=== PATIENT | male | born 1990 | race Caucasian/White ===

== ENCOUNTER 2024-11-02 19:13 | Day surgery (SDC) | payer SELFPAY ==
[2024-11-02] MEDS: Glucagon,Human Recombinant 1 MG Vial IVPUSH ONE (19:59)
[2024-11-02 20:02] LABS: BASOPHILS ABSOLUTE AUTO 0.13 K/uL (0.00-0.20); BASOPHILS PERCENT AUTO 1.2 % (0.0-1.0); EOSINOPHILS ABSOLUTE AUTO 0.56 K/uL (0.00-0.45); HEMATOCRIT 47.5 % (42.0-52.0); HEMOGLOBIN 16.2 g/dL (14.0-18.0); IMMATURE GRAN ABSOLUTE AUTO 0.06 K/uL (0.00-0.05); IMMATURE GRAN PERCENT AUTO 0.5 % (0.0-0.4); LYMPHOCYTES ABSOLUTE AUTO 3.22 K/uL (1.00-4.80); LYMPHOCYTES PERCENT AUTO 28.9 % (24.0-44.0); MEAN CORPUSCULAR HEMOGLOBIN 28.8 pg (28.0-32.0); MEAN CORPUSCULAR HGB CONC 34.1 g/dL (32.0-36.0); MEAN CORPUSCULAR VOLUME 84.5 fL (83.0-99.0); MEAN PLATELET VOLUME 10.8 fL (9.4-12.4); MONOCYTES PERCENT AUTO 7.2 % (0.0-8.0); NEUTROPHILS ABSOLUTE AUTO 6.37 K/uL (1.80-7.70); NEUTROPHILS PERCENT AUTO 57.2 % (41.0-71.0); PLATELET COUNT,PLT 304 K/uL (150-400); RED BLOOD CELL COUNT 5.62 M/uL (4.52-5.90); WHITE BLOOD CELL COUNT,WBC 11.14 K/uL (3.9-11.3)
[2024-11-02 20:14] LABS: INR 1.03 (0.86-1.11)
[2024-11-02] MEDS: Ondansetron 4 MG/2 ML SDV IVPUSH ONE (20:39)
[2024-11-02 20:40] LABS: CALCIUM 9.2 mg/dL (8.5-10.1); CARBON DIOXIDE,CO2 21.9 mmol/L (21.0-32.0); EST CRCL DRUG DOSING (CG) 105.44 mL/min; POTASSIUM,K 3.5 mmol/L (3.5-5.1)
[2024-11-02] MEDS ORDERED: Propofol 200 MG/20 ML SDV ONE (20:53)
[2024-11-02] MEDS ORDERED: fentaNYL 100 MCG/2 ML SDV ONE (20:53)
[2024-11-02] MEDS ORDERED: Succinylcholine/Sod PF 100 MG/5 ML SYRINGE IV ONE (20:54)
[2024-11-02] MEDS ORDERED: Sodium Chloride 0.9% 20 ML ONE (20:55)
[2024-11-02] MEDS ORDERED: dexmedeTOMIDine HCl 200 MCG/2 ML SDV ONE (20:55)
[2024-11-02] MEDS ORDERED: Dexamethasone 4 MG/ML 5 ML MDV ONE (21:23)
[2024-11-02] MEDS ORDERED: Pantoprazole 40 MG Vial ONE (22:01)
[2024-11-02] MEDS: Pantoprazole 80 MG in Sodium Chloride 0.9% 20 ML IVPUSH ONE (22:29)
== END 2024-11-03 00:25 | disposition home or self-care (01) ==
LOC: MW.ED 19:13 → MW.SDS 21:15 → MW.MS 22:09 → MW.SDS 11-03 00:25
PROVIDERS: ATTEND Surgery
DX: K22.2 Esophageal obstruction (principal); T18.128A Food in esophagus causing other injury, initial encounter; K44.9 Diaphragmatic hernia without obstruction or gangrene
CPT/HCPCS: 36415; 43247; 80048; 85025; 85610; 96374; 96375; 99284; J0330; J1100; J1610; J2405; J2470; J2704; J3010; 00731; 99283; J3490